=== PATIENT | male | born 1995 | race African-American/Black ===

== ENCOUNTER 2016-11-16 09:26 | Emergency (ER) | payer OTHER ==
--- NOTE | ~2016-11-16 | CR173 ---
[facility] A Service of [facility] RADIOLOGY TEXT RESULTS PATIENT: GODFREY BEATTY LOCATION: [facility] : [birth year] UNIT #: [id number] AGE: [address]: Alyssa De Paz SEX: M ORDER DR: [id number] [id number] [facility]. [place], [place] [address] [id number] MR#: [id number] Acc #: [id number] NAME: GODFREY BEATTY : 1995 SEX: M STUDY DATE/TIME: 11/16/2016 9:10 UNIT: [facility] ROOM: STUDY DESCRIPTION: CR Knee 3 Views Rt Attending Physician: Alyssa De Paz Pa-C Ordering Physician: Alyssa De Paz Pa-C Primary Care Physician: Archie Felix M.D. MEDICAL IMAGING REPORT This report is preliminary unless electronic signature is present EXAM Right knee, 3 views, 11/16/2016, 9:10 a.m. COMPARISON STUDIES No correlate studies. HISTORY History sheet states right knee pain, unable to bear weight. Cloud right knee pop one day ago during horseplay. Symptoms for 1 day. FINDINGS There is a mild effusion. No fracture, dislocation, or osseous abnormality is noted. Patellofemoral alignment is normal. IMPRESSION 1. Joint effusion. 2. Probable medial soft tissue edema. 3. No osseous abnormality. Dictated by... Alicia Jenkins M.D. THIS IS AN ELECTRONICALLY VERIFIED REPORT Alicia Jenkins M.D. at 11/16/2016 11:06 AM [facility] TD: 11/16/2016 09:35 JOB #: [id number] MEDICAL IMAGING REPORT [facility] A Service [facility] RADIOLOGY TEXT RESULTS PATIENT: GODFREY BEATTY LOCATION: [facility] : [birth year] UNIT #: [id number] AGE: [address]: Alyssa De Paz SEX: M ORDER DR: Page 1 of 1 COPY
[~2016-11-16 09:26] MED LIST: BACTRIM DS TABL1 TA1 PO; IBUPROFEN PO; IBUPROFEN800 MG PO; KEFLEX500 M1 PO
== END 2016-11-16 10:12 | disposition home or self-care (01) ==
LOC: CFTX 09:26
DX: S83.411A Sprain of medial collateral ligament of right knee, initial encounter (principal); W18.39XA Other fall on same level, initial encounter; Y93.83 Activity, rough housing and horseplay; Y92.009 Unspecified place in unspecified non-institutional (private) residence as the place of occurrence of the external cause
CPT/HCPCS: 29505; 73562; 99283